=== PATIENT | female | born 1990 | race African-American/Black ===

== ENCOUNTER 2016-06-28 09:30 | Emergency (ER) | payer SELFPAY ==
[~2016-06-28] VITALS: Ht 170.2 cm; Wt 78.0 kg
[2016-06-28] MEDS ORDERED: MORPHINE SULFATE 4 MG/ML CPJ (NOT FOR IM USE) IV STA (10:51)
[2016-06-28] MEDS ORDERED: PANTOPRAZOLE SODIUM 40 MG/VIAL IV STA (10:51)
[2016-06-28] MEDS ORDERED: ONDANSETRON HCL 4MG/2ML VIAL IV STA (10:51)
[2016-06-28 11:28] LABS: CHLORIDE 107 mEq/L (98-107); INDEX HEMOLYSI 1 (1-3); INDEX ICTERIC 1 (1-4); INDEX LIPEMIC 1 (1-3)
[2016-06-28 11:30] LABS: CLARITY URINE CLEAR (CLEAR); COLOR URINE DARK YELLOW (YELLOW); GLUCOSE URINE NEGATIVE (NEGATIVE); KETONES URINE 3+ (NEGATIVE); LEUKOCYTE ESTERASE URINE NEGATIVE (NEGATIVE); NITRITE URINE NEGATIVE (NEGATIVE); OCCULT BLOOD URINE NEGATIVE (NEGATIVE); PH URINE 5.5 (4.5-8.0); PROTEIN URINE 1+ (NEGATIVE); SPECIFIC GRAVITY URINE 1.037 (1.005-1.030)
[2016-06-28 11:37] LABS: ALANINE AMINOTRANSFERASE 28 IU/L (13-61); ALBUMIN 4.4 g/dL (3.4-5.0); ANION GAP 16; CALCIUM 8.7 mg/dL (8.5-10.1); CARBON DIOXIDE 21 mEq/L (21-32); LIPASE 77 IU/L (73-393); UREA NITROGEN BLOOD 13 mg/dL (7-21); eGFR > 60 mL/min (>60)
[2016-06-28 11:38] LABS: BASOPHILS % 0.2 % (0.0-2.0); HEMOGLOBIN. 12.2 g/dL (12.0-16.0); LYMPHOCYTES % 8.8 % (20.0-50.0); MEAN CORPUSCULAR HEMOGLOBIN 28.3 pg (28.0-32.0); MEAN CORPUSCULAR HGB CONC 33.1 g/dL (31.0-37.0); MEAN CORPUSCULAR VOLUME 85.5 fL (81.0-99.0); MEAN PLATELET VOLUME 9.6 fl (7.4-10.4); MONOCYTES % 3.9 % (2.0-8.0); NEUTROPHILS % 87.1 % (40.0-76.0); PLATELET 136 x1000/uL (130-400); RED BLOOD CELL COUNT 4.33 mill/uL (4.2-5.4); RED CELL DISTRIBUTION WIDTH 13.6 % (11.6-14.6)
[2016-06-28 11:48] LABS: BACTERIA URINE TRACE; RBC URINE NONE SEEN /hpf (0-2); SQUAMOUS EPITHELIAL CELL URINE FEW /lpf (RARE/1+); WBC URINE 0-2 /hpf (0-2)
[2016-06-28] MEDS ORDERED: MORPHINE SULFATE 4 MG/ML CPJ (NOT FOR IM USE) IV ONE (12:00)
[2016-06-28 13:24] VITALS: BP 129/81
== END 2016-06-28 13:59 | disposition home or self-care (01) ==
LOC: ER 11:16
DX: K29.70 Gastritis, unspecified, without bleeding (principal); D72.829 Elevated white blood cell count, unspecified; E87.6 Hypokalemia
CPT/HCPCS: 36415; 76705; 80053; 81001; 81025; 83690; 85025; 96374; 96375; 96376; 99285; C9113; J2270; J2405; J7030

== ENCOUNTER 2016-11-30 17:32 | Inpatient (IN) | payer MEDICAID ==
[~2016-11-30] VITALS: Ht 165.1 cm; Wt 59.9 kg
[2016-11-30] MEDS ORDERED: ONDANSETRON HCL 4MG TABLET PO ONE (20:45)
[2016-11-30] MEDS ORDERED: ACETAMINOPHEN 325MG TABLET PO ONE (20:45)
[2016-11-30] MEDS ORDERED: ONDANSETRON HCL 4MG/2ML VIAL IV ONE ×2 (21:00→22:45)
[2016-11-30] MEDS ORDERED: SODIUM CHLORIDE 0.9% 1,000 ML IV ONE (21:00)
[2016-11-30 21:05] LABS: HEMATOCRIT. 34.2 % (36.0-48.0); HEMOGLOBIN. 11.3 g/dL (12.0-16.0); MEAN CORPUSCULAR HEMOGLOBIN 28.2 pg (28.0-32.0); MEAN CORPUSCULAR VOLUME 85.2 fL (81.0-99.0); MEAN PLATELET VOLUME 9.9 fl (7.4-10.4); PLATELET 147 x1000/uL (130-400); RED BLOOD CELL COUNT 4.01 mill/uL (4.2-5.4); RED CELL DISTRIBUTION WIDTH 13.9 % (11.6-14.6)
[2016-11-30 21:08] LABS: CHLORIDE 103 mEq/L (98-107)
[2016-11-30 21:25] LABS: CARBON DIOXIDE 21 mEq/L (21-32)
[2016-11-30 21:31] LABS: B-HCG QUANTITATIVE 57822 mIU/mL (<3); PLATELET ESTIMATE NORMAL
[2016-11-30] MEDS ORDERED: MORPHINE SULFATE 4 MG/ML CPJ (NOT FOR IM USE) IV ONE (23:00)
[2016-11-30] MEDS ORDERED: METOCLOPRAMIDE HCL 10MG/2ML VIAL IV ONE (23:00)
[2016-11-30] MEDS: MORPHINE SULFATE 2 MG/ML CPJ (NOT FOR IM USE) IV SCH (23:16)
[2016-12-01 00:03] LABS: CLARITY URINE CLEAR (CLEAR); COLOR URINE YELLOW (YELLOW); GLUCOSE URINE NEGATIVE (NEGATIVE); KETONES URINE 2+ (NEGATIVE); LEUKOCYTE ESTERASE URINE NEGATIVE (NEGATIVE); NITRITE URINE NEGATIVE (NEGATIVE); OCCULT BLOOD URINE 3+ (NEGATIVE); PROTEIN URINE 2+ (NEGATIVE); SPECIFIC GRAVITY URINE 1.032 (1.005-1.030); UROBILINOGEN URINE 0.2 E.U./dL (0.2-1.0)
[2016-12-01 00:41] LABS: *AMPHETAMINES SCREEN URINE NEGATIVE (NEGATIVE); *BARBITURATES SCREEN URINE NEGATIVE (NEGATIVE); *BENZODIAZEPINES SCREEN URINE NEGATIVE (NEGATIVE); *COCAINE SCREEN URINE NEGATIVE (NEGATIVE); METHADONE URINE SCREEN NEGATIVE (NEGATIVE); PHENCYCLIDINE URINE SCREEN NEGATIVE (NEGATIVE)
[2016-12-01 00:46] LABS: CANNABINOID URINE SCREEN PRESUMTIVE POSITIVE (NEGATIVE); OPIATES URINE SCREEN PRESUMTIVE POSITIVE (NEGATIVE)
[2016-12-01] MEDS ORDERED: METOCLOPRAMIDE HCL 10MG/2ML VIAL IV ONE (02:00)
[2016-12-01] MEDS ORDERED: ACETAMINOPHEN 325MG TABLET PO ONE (02:00)
[2016-12-01] MEDS: MORPHINE SULFATE 2 MG/ML CPJ (NOT FOR IM USE) IV SCH (03:35)
[2016-12-01 08:00] VITALS: BP 106/61
[2016-12-01] MEDS ORDERED: LACTATED RINGERS 1,000 ML IV SCH (09:23)
[2016-12-01] MEDS ORDERED: RHO(D) IMMUNE GLOBULIN 300 MCG/SYR IM NR (09:30)
[2016-12-01 12:00] VITALS: BP 98/51
[2016-12-01] MEDS: [UNRECOGNIZED DRUG - REMARK] IV SCH ×5 (12:14)
[2016-12-01 12:15] LABS: BASOPHILS % 0.5 % (0.0-2.0); HEMATOCRIT. 31.7 % (36.0-48.0); HEMOGLOBIN. 10.5 g/dL (12.0-16.0); LYMPHOCYTES % 13.8 % (20.0-50.0); MEAN CORPUSCULAR HEMOGLOBIN 28.4 pg (28.0-32.0); MEAN CORPUSCULAR VOLUME 86.1 fL (81.0-99.0); MEAN PLATELET VOLUME 11.3 fl (7.4-10.4); MONOCYTES % 6.8 % (2.0-8.0); NEUTROPHILS % 78.9 % (40.0-76.0); PLATELET 146 x1000/uL (130-400); RED BLOOD CELL COUNT 3.68 mill/uL (4.2-5.4); RED CELL DISTRIBUTION WIDTH 13.6 % (11.6-14.6)
[2016-12-01 14:05] LABS: RUBELLA IGG 39.2 IU/mL (4.99-10)
[2016-12-01 14:06] LABS: HEPATITIS B SURFACE ANTIGEN NEGATIVE
[2016-12-01] MEDS ORDERED: PREN-161 PO (14:45)
[2016-12-01] MEDS ORDERED: ONDA4TAB5 PO (14:51)
[2016-12-01 16:00] VITALS: BP 131/82
[2016-12-01 20:00] VITALS: BP 116/82
[2016-12-02] VITALS: BP 125/72
[2016-12-02] MEDS: DEXT 5%/LACTATED RINGERS 1,000 ML IV SCH ×4 (00:02→21:37)
[2016-12-02 04:00] VITALS: BP 130/72
[2016-12-02 07:24] LABS: CLARITY URINE CLEAR (CLEAR); COLOR URINE YELLOW (YELLOW); GLUCOSE URINE NEGATIVE (NEGATIVE); KETONES URINE NEGATIVE (NEGATIVE); LEUKOCYTE ESTERASE URINE NEGATIVE (NEGATIVE); NITRITE URINE NEGATIVE (NEGATIVE); OCCULT BLOOD URINE 3+ (NEGATIVE); PH URINE 6.5 (4.5-8.0); PROTEIN URINE NEGATIVE (NEGATIVE); SPECIFIC GRAVITY URINE 1.015 (1.005-1.030)
[2016-12-02 08:00] VITALS: BP 126/72
[2016-12-02 08:11] LABS: *AMPHETAMINES SCREEN URINE NEGATIVE (NEGATIVE); *BARBITURATES SCREEN URINE NEGATIVE (NEGATIVE); *BENZODIAZEPINES SCREEN URINE NEGATIVE (NEGATIVE); *COCAINE SCREEN URINE NEGATIVE (NEGATIVE); METHADONE URINE SCREEN NEGATIVE (NEGATIVE); OPIATES URINE SCREEN NEGATIVE (NEGATIVE); PHENCYCLIDINE URINE SCREEN NEGATIVE (NEGATIVE)
[2016-12-02 08:13] LABS: CANNABINOID URINE SCREEN PRESUMTIVE POSITIVE (NEGATIVE)
[2016-12-02] MEDS ORDERED: ONDANSETRON HCL 4MG/2ML VIAL IV PRN (09:00)
[2016-12-02] MEDS: [UNRECOGNIZED DRUG - REMARK] IV SCH ×5 (13:02)
[2016-12-02 13:04] VITALS: BP 117/74
[2016-12-02 20:00] VITALS: BP 101/59
[2016-12-03 10:00] VITALS: BP 111/80
[2016-12-03] MEDS: [UNRECOGNIZED DRUG - REMARK] IV SCH ×5 (11:41)
[2016-12-03 12:00] VITALS: BP 123/79
[2016-12-03] MEDS: DEXT 5%/LACTATED RINGERS 1,000 ML IV SCH (15:17)
== END 2016-12-03 18:28 | disposition left against medical advice (07) | DRG 566 ==
LOC: ER 18:03 → ENRESERV 12-01 06:40 → 6EST 12-01 07:49
PROVIDERS: ADMIT Obstetrics & Gynecology; ATTEND Obstetrics & Gynecology
DX: O46.92 Antepartum hemorrhage, unspecified, second trimester (principal); Z90.6 Acquired absence of other parts of urinary tract; Z3A.19 19 weeks gestation of pregnancy; O21.9 Vomiting of pregnancy, unspecified; Z53.21 Procedure and treatment not carried out due to patient leaving prior to being seen by health care provider
CPT/HCPCS: 36415; 76705; 76805; 80048; 80076; 80305; 81001; 81003; 84702; 85025; 85730; 86592; 86703; 86762; 86886; 87086; 87340; 96374; 99285; C1893; J2270; J2405; J2765; J3411; J3475; J3490; J7030; J7120; J7121; Q0162

== ENCOUNTER 2018-11-29 07:48 | Emergency (ER) | payer MEDICAID, OTHER ==
[~2018-11-29] VITALS: Ht 165.1 cm; Wt 73.0 kg
[~2018-11-29 07:48] MED LIST: ONDA4TAB5 PO; PREN-161 PO
[2018-11-29 07:59] VITALS: BP 159/100
== END 2018-11-29 08:43 | disposition left against medical advice (07) ==
LOC: ER 08:04
DX: R10.9 Unspecified abdominal pain (principal); Z53.21 Procedure and treatment not carried out due to patient leaving prior to being seen by health care provider